=== PATIENT | male | born 1985 | race Caucasian/White ===

== ENCOUNTER 2019-04-17 00:12 | Emergency (ER) | payer BC, SELFPAY ==
[2019-04-17 00:13] VITALS: BP 182/110; PULSE 100; RESP 16; TEMP 37; O2SAT 99; BMI 35.9
--- NOTE | 2019-04-17 00:32 | PC.NURSE ---
patient states that he started having hives around his eyes and then while texting his sister he started seeing circles and felt lightheaded and almost blacked out. Patient states he started to feel numb and have a warm sensation that makes me feel like I am going to pee on myself . Patient states he started a new medication on friday, citrolapram and also received the flu shot on friday.
[2019-04-17 00:37] VITALS: BP 160/100; PULSE 86; RESP 14; O2SAT 97
--- NOTE | 2019-04-17 00:41 | PC.NURSE ---
Patient states the burning/warmth feeling is starting again and starts in his chest and goes down his body from there.
--- NOTE | 2019-04-17 00:43 | PC.NURSE ---
patient states he has diverticulitis and has had it for a year.
--- NOTE | 2019-04-17 00:54 | W.ED.ALLEREA ---
HPI - Allergic Reaction General: Chief complaint: Allergic Reaction Stated complaint: EXTREMITY NUMBNESS Time Seen by Provider: 04/17/19 00:33 History of Present Illness: HPI narrative: Patient is a 33-year-old male comes into the ED with an allergic reaction. Patient stated that around 11:30 PM tonight he started to get hives, redness and swelling around both eyes and face. He also started getting this feeling of numbness and tingling that started in his head and moved all the way down to his toes. He states the numbness and tingling comes in waves and is happened about 10 times in the last 1-1/2 hours. Patient states that he started citalopram on Friday, but did notice any issues for the first couple days after starting the medication. Right before the rash started patient just finished eating a salad. Patient said the salad had nothing unusual on it or anything that he hasn't eaten before. Patient states he didn't have any throat swelling. He does think he started to panic a little bit when reaction was occurring and he felt a little short of breath then. While here in the ED patient feels fine and the rash is pretty much gone away. Associated symptoms: Deny abdominal pain, nausea or vomiting Review of Systems Const: Denies: fever, chills or fatigue Eyes: Denies: change in vision or eye discomfort ENMT: Denies: throat pain, painful swallowing, nasal discharge or nasal congestion Card: Denies: chest pain, palpitations, edema, swelling of feet/ankles, shortness of breath on exertion or shortness of breath when lying down Resp: Denies: shortness of breath, productive cough or non-productive cough GI: Denies: abdominal pain, nausea, vomiting, diarrhea, constipation or blood in stool : Denies: flank pain, difficulty urinating, painful urination or blood in urine Musc: Denies: neck pain, back pain or extremity swelling Skin/Breast: Reports: rash (Hives, on face around eyes. it has since resolved.); Denies: new lesion Neuro: Denies: headache, numbness in extremities or weakness in extremities PFS ED PFSH: Social History Smoking and tobacco status: current every day smoker Physical Exam Narrative: EXAM NARRATIVE: Patient is a 33-year-old male who appears in no acute pain or respiratory distress in the room. There is no visible rash on his face. Patient did show me pictures of what his rash looks like about an hour ago and it appeared that he had hives around both eyes. Const: COMMON NORMALS: oriented x3 HENMT: COMMON NORMALS: normocephalic HEAD & SCALP: normocephalic MOUTH: oral and palatal mucosa normal THROAT: posterior oropharynx normal and uvula midline Neck/C-Spine: COMMON NORMALS: supple GENERAL: Yes normal visual inspection Resp: COMMON NORMALS: normal respiratory effort, no retractions, no use of accessory muscles and clear to auscultation bilaterally AUSCULTATION: clear to auscultation bilaterally Cardio: COMMON NORMALS: regular rate, regular rhythm, S1 normal heart sound, S2 normal heart sound, no gallops, no clicks, no murmurs and peripheral pulses 2+ throughout RATE: regular rate RHYTHM: regular rhythm HEART SOUNDS: S1 normal and S2 normal PERIPHERAL PULSES: pulses 2+ throughout GI: COMMON NORMALS: normal to inspection, nondistended, normoactive bowel sounds, soft to palpation, non-tender and no masses PALPATION: Yes soft : COMMON NORMALS: Yes no CVA tenderness BLADDER/KIDNEY EXAM: Yes no CVA tenderness Back/Pelvis: COMMON NORMALS: no CVA tenderness Extremity: COMMON NORMALS: normal to inspection Neuro: COMMON NORMALS: oriented x3 and moves all extremities Skin: COMMON NORMALS: no rashes or lesions noted NARRATIVE SKIN EXAM: Patient's allergic rash has resolved When I saw the patient. GENERAL SKIN EXAM: no rashes or lesions noted Course ED course: Patient's symptoms improved after treatment. He had no more incidences of panic attack or tingling sensation throughout his body after treatment. Patient felt well and was ready to go home. Vital Signs: Vital signs: Vital Signs Temperature 98.6 F 04/17/19 00:13 Pulse Rate 89 04/17/19 03:08 Respiratory Rate 16 04/17/19 03:08 Blood Pressure 120/75 04/17/19 03:08 Pulse Oximetry 95 04/17/19 03:08 Discharge Plan Discharge Patient Disposition: Home, Self-Care Clinical Impression: Allergic reaction Qualifiers: Encounter type: initial encounter Qualified Code(s): T78.40XA - Allergy, unspecified, initial encounter Condition: Stable Prescriptions: No Action citalopram 20 mg Tablet 20 mg PO DAILY RF: 0 Discharge Orders: Discharge Order (Routine); Ordered 04/17/19 Ordered By: Steven Taylor Discharge Diet: Regular Discharge Activity: Resume usual activity Patient Instructions: Allergic Reaction Activity Restrictions/Additional Instructions: Follow-up with your PCP in 5-7 days for reevaluation. Return to the ED if you get any throat swelling or trouble breathing. You can take [id number] Benadryl for any itchy rash that develops on your skin (hives). Discharge Date/Time: 04/17/19 03:10 Coding Level of Care Code ED [employer] for Ch[facility] Fwjonathan Exam Comprehensive
[2019-04-17] MEDS: predniSONE 20 mg Tablet 60 MG PO (01:01)
[2019-04-17] MEDS: diphenhydrAMINE 25 mg Capsule PO (01:01)
[2019-04-17 01:02] VITALS: BP 164/110; PULSE 103; RESP 14; O2SAT 98
[2019-04-17] MEDS: diphenhydrAMINE 50 mg/mL SDV 1mL 25 MG IVP (01:36)
[2019-04-17] MEDS: LORazepam 2 mg/mL INJ 1 mL 1.5 MG IVP (01:37)
[2019-04-17] MEDS: sodium chloride 0.9% 500 ML IV (01:39)
[2019-04-17 02:03] VITALS: BP 141/72; PULSE 76; RESP 14; O2SAT 96
[2019-04-17 03:08] VITALS: BP 120/75; PULSE 89; RESP 16; O2SAT 95
== END 2019-04-17 03:10 | disposition home or self-care (01) ==
PROVIDERS: Emergency Provider Physician Assistant
DX: T78.40XA Allergy, unspecified, initial encounter (principal); F17.200 Nicotine dependence, unspecified, uncomplicated; X58.XXXA Exposure to other specified factors, initial encounter
CPT/HCPCS: 96365; 96366; 96375; 96376; 99283; J1200; J2060; J3490; J7040; J7512